=== PATIENT | male | born 1940 | race Caucasian/White ===

== ENCOUNTER 2017-08-05 23:45 | Inpatient (IN) | payer BC, MEDICARE ==
[~2017-08-05] VITALS: Ht 170.2 cm; Wt 80.1 kg
[~2017-08-05 23:45] MED LIST: HYDR-902 PO
[2017-08-06] MEDS ORDERED: KETOROLAC 15 MG INJ IV STA (00:03)
[2017-08-06] MEDS ORDERED: LACTATED RINGER'S 1,000 ML IV ONE (00:30)
[2017-08-06 00:40] LABS: BASOPHILS % 0.1 % (0.0-2.0); EOSINOPHILS # 0.1 10^3/ul (0.0-0.5); EOSINOPHILS % 0.4 % (0.0-7.0); HEMATOCRIT 42.1 % (42.0-52.0); HEMOGLOBIN 14.5 g/dl (14.0-18.0); LYMPHOCYTES % 21.9 % (15.0-51.0); MEAN CORPUSCULAR HGB CONC 34.4 g/dl (32.0-37.0); MEAN PLATELET VOLUME 8.9 fl (7.4-10.4); MONOCYTES % 7.4 % (0.0-11.0); NEUTROPHIL # 9.6 10^3/ul (1.6-7.5); NEUTROPHILS % 69.8 % (39.0-77.0); PLATELET COUNT 223 10^3/UL (140-415); RED BLOOD COUNT 4.84 10^6/ul (4.70-6.10); RED CELL DISTRIBUTION WIDTH 12.6 % (11.5-14.5); WHITE BLOOD COUNT 13.8 10^3/ul (4.8-10.8)
[2017-08-06 00:45] LABS: URINE BLOOD (Dip) POC Negative (NEGATIVE)
[2017-08-06 00:52] LABS: ALBUMIN 3.8 g/dl (3.3-4.9); ALBUMIN/GLOBULIN RATIO 1.26; BILIRUBIN,INDIRECT 0.4 mg/dl (0-1.1); BILIRUBIN,TOTAL 0.4 mg/dl (0.2-1.3); CALCIUM 9.3 mg/dl (8.4-10.2); CREATININE 1.2 mg/dl (0.61-1.24); POTASSIUM 3.8 mmol/L (3.5-5.1); TOTAL PROTEIN 6.8 g/dl (6.1-8.1)
[2017-08-06 01:31] LABS: ADD UMIC NO; UR ASCORBIC ACID 20 mg/dL (NEGATIVE); UR BILIRUBIN (Dip) NEGATIVE (NEGATIVE); UR BLOOD (Dip) NEGATIVE (NEGATIVE); UR CLARITY CLEAR (CLEAR); UR COLOR STRAW (YELLOW); UR GLUCOSE (Dip) NEGATIVE (NEGATIVE); UR KETONES (Dip) NEGATIVE (NEGATIVE); UR LEUKOCYTE ESTERASE (Dip) NEGATIVE Leu/ul (NEGATIVE); UR NITRITE (Dip) NEGATIVE (NEGATIVE); UR SPECIFIC GRAVITY (Dip) 1.006 (1.003-1.030); UR TOTAL PROTEIN (Dip) NEGATIVE (NEGATIVE); UR UROBILINOGEN (Dip) NEGATIVE (NEGATIVE)
--- NOTE | 2017-08-06 02:00 | ERD ---
ER Documentation Chief Complaint Chief Complaint lower AP since 1930, constipation (chronic) now urinary retention x1 hr HPI 77-year-old man complains of constipation and urinary retention beginning early this evening, he also describes diffuse abdominal pain and distention. He denies fevers or chills, no chest pain or shortness of breath, no vomiting or diarrhea. Patient has a history of appendectomy. ROS All systems reviewed and are negative except as per history of present illness. Medications Home Meds Active Scripts Hydrocodone/Acetaminophen ([place] 10-325 Tablet) 1 Each Tablet, 1 EACH PO Q6, # 20 TAB Prov:DAKOTAH LOPEZ DO 05/14/16 Allergies Allergies: Coded Allergies: Sulfa (Sulfonamide Antibiotics) (Verified Allergy, Unknown, 08/05/17) PMhx/Soc Diabetes mellitus, history of appendectomy History of Surgery: Yes (APPENDECTOMY) Anesthesia Reaction: No Hx Neurological Disorder: No Hx Respiratory Disorders: No Hx Cardiac Disorders: Yes (HIGH CHOLESTEROL) Hx Psychiatric Problems: No Hx Miscellaneous Medical Probl: Yes (DM, BPH) Hx Alcohol Use: No Hx Substance Use: No Hx Tobacco Use: No Smoking Status: Never smoker FmHx Family History: No diabetes Physical Exam Vitals Vital Signs Date Time Temp Pulse Resp B/P Pulse Ox O2 Delivery O2 Flow Rate FiO2 08/06/17 00:00 97.3 89 20 121/90 100 Room Air 08/05/17 23:55 97.3 94 20 121/90 100 Physical Exam GENERAL: Well-developed, well-nourished, appears dehydrated, afebrile HEENT: Dry mucous membranes, pink conjunctiva, no cervical spine tenderness or step-off deformities, no goiter, no jaundice or icterus, extraocular movements intact without pain. No submandibular induration, and no pharyngeal erythema NEURO: Alert and oriented 3, cranial nerves II through XII intact bilaterally, pupils equal round reactive to light, no focal deficits or facial asymmetry, sensation intact distally Strength 5/5 in upper and lower extremities bilaterally CARDIAC: Regular rate and rhythm, no murmurs rubs or gallops LUNGS: Clear bilaterally no wheezing crackles or stridor ABDOMEN: Protuberant abdomen, distended, no tenderness to touch, no rebound, no psoas sign SKIN: Warm and dry to touch, no abrasions, contusions, or hematomas, no lacerations, no ecchymosis, no target lesions, and without ulcers EXTREMITIES: No clubbing cyanosis or edema, calves are bilaterally symmetrical, no Homans sign, no popliteal cord sign. Distal pulses equal and bilateral PSYCH: Normal affect without agitation or irritability Result Diagram: 08/06/17 0014 08/06/17 0014 Results 24 hrs Laboratory Tests Test 08/06/17 00:14 08/06/17 00:35 08/06/17 00:44 White Blood Count 13.810^3/ul Red Blood Count 4.8410^6/ul Hemoglobin 14.5g/dl Hematocrit 42.1% Mean Corpuscular Volume 87.0fl Mean Corpuscular Hemoglobin 30.0pg Mean Corpuscular Hemoglobin Concent 34.4g/dl Red Cell Distribution Width 12.6% Platelet Count 75362^3/UL Mean Platelet Volume 8.9fl Neutrophils % 69.8% Lymphocytes % 21.9% Monocytes % 7.4% Eosinophils % 0.4% Basophils % 0.1% Nucleated Red Blood Cells % 0.0/100WBC Neutrophils # 9.610^3/ul Lymphocytes # 3.010^3/ul Monocytes # 1.010^3/ul Eosinophils # 0.110^3/ul Basophils # 0.010^3/ul Nucleated Red Blood Cells # 0.010^3/ul Sodium Level 132mmol/L Potassium Level 3.8mmol/L Chloride Level 94mmol/L Carbon Dioxide Level 26mmol/L Anion Gap 16 Blood Urea Nitrogen 17mg/dl Creatinine 1.20mg/dl Glucose Level 138mg/dl Calcium Level 9.3mg/dl Total Bilirubin 0.4mg/dl Direct Bilirubin 0.00mg/dl Indirect Bilirubin 0.4mg/dl Aspartate Amino Transf (AST/SGOT) 22IU/L Alanine Aminotransferase (ALT/SGPT) 36IU/L Alkaline Phosphatase 28IU/L Total Protein 6.8g/dl Albumin 3.8g/dl Globulin 3.00g/dl Albumin/Globulin Ratio 1.26 Lipase 68U/L Urine Color STRAW Urine Clarity CLEAR Urine pH 7.0 Urine Specific [place] 1.006 Urine Ketones NEGATIVEmg/dL Urine Nitrite NEGATIVEmg/dL Urine Bilirubin NEGATIVEmg/dL Urine Urobilinogen NEGATIVEmg/dL Urine Leukocyte Esterase NEGATIVELeu/ul Urine Hemoglobin NEGATIVEmg/dL Urine Glucose NEGATIVEmg/dL Urine Total Protein NEGATIVEmg/dl Bedside Urine pH (LAB) 7.0 Bedside Urine Protein (LAB) Negative Bedside Urine Glucose (UA) Negative Bedside Urine Ketones (LAB) Negative Bedside Urine Blood Negative Bedside Urine Nitrite (LAB) Negative Bedside Urine Leukocyte Esterase (L Negative Current Medications Medications (Trade) Dose Ordered Sig/Laci Route PRN Reason Start Time Stop Time Status Last Admin Dose Admin Ketorolac Tromethamine 15 mg 15 mg ONCE STAT IV 08/06/17 00:03 08/06/17 00:05 DC 08/06/17 00:23 Lactated Ringer's 1,000 ml @ 1,000 mls/hr Q1H ONCE IV 08/06/17 00:30 08/06/17 01:29 DC 08/06/17 00:24 Piperacillin Sod/ Tazobactam Sod (Zosyn 3.375gm/ 50 ml (Pmx)) 50 ml @ 100 mls/hr ONCE ONCE IV 08/06/17 02:30 08/06/17 02:59 DC 08/06/17 02:18 Hydromorphone HCl (Dilaudid) 1 mg ONCE STAT IV 08/06/17 02:16 08/06/17 02:17 DC 08/06/17 02:20 Procedures/MDM IV line was established patient was placed on case monitor rhythm strip revealed a sinus rhythm at about 80 bpm with upright P and T waves. Patient was afebrile. Guevara catheter was placed for urinary retention. I administered 1 L LR intravenously and Toradol 15 mg IV 1. For continued pain I administered hydromorphone 1 mg IV 1 CBC revealed a leukocytosis of 14, electrolytes were unremarkable, liver function tests were normal, urine analysis was negative for infection. CT scan of the abdomen and pelvis was performed, given the patient's symptoms. 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 Please refer to radiologist dictation for full report. I administered Pipracil and tazobactam 3.375 g IV 1. Patient [facility] be [facility] for continued medical management and surgical consultation. Surgeon on-call Dr. Phillips has been paged as 03:09 Departure Diagnosis: Primary Impression: Abdominal pain Abdominal location: generalized Qualified Code: R10.84 - Generalized abdominal pain Additional Impressions: Constipation Constipation type: unspecified constipation type Qualified Code: K59.00 - Constipation, unspecified constipation type Urinary retention Mesenteric panniculitis Condition: KELY Ceja MD Aug 06, 2017 02:00
--- NOTE | 2017-08-06 02:07 | RADRPT ---
PROCEDURE: CT Abdomen and Pelvis without contrast. CLINICAL INDICATION: Right lower quadrant pain, history of appendectomy TECHNIQUE: CT scan of the abdomen and pelvis without contrast was performed on a multidetector hig h-resolution CT scanner. The patient was scanned without intravenous contrast. Coronal and sagittal reformatted images were obtained from the axial source images. Images were reviewed on a high-resol [employer] PACS workstation. The total exam CTDI equals 14.44 mGy and the total exam DLP equals 943.94 mG y-cm. One or more the following dose reduction techniques were utilized: Automated exposure control, adjus tment of the mA and / or kV according to patient's size, or use of iterative reconstruction techniqu e. DICOM images are available. COMPARISON: None. FINDINGS: Minimal linear atelectasis/fibrosis at lung bases. No pneumoperitoneum is seen. Very small umbilical hernia containing fat only. No abnormality seen in the liver. The gallbladder is contracted. This i s nonspecific and could be due to nonfasting state. Food material/debris and air is seen in the stom ach. No abnormality seen in the spleen. No biliary dilatation is seen. Atrophic changes are seen in the pancreas which can be seen in elderly patients. No abnormality of the adrenals is seen. Calcific ation in thoracoabdominal aorta. No abdominal aortic aneurysm is seen. There is nonspecific minimal hydronephrosis bilaterally. No renal or ureteral stone is seen. Mild nonspecific perinephric soft ti ssue stranding seen bilaterally. Guevara catheter in bladder. The prostate does not appear to be signi ficantly enlarged. Small bilateral hydroceles are apparent. Moderate stool is seen in the rectum and in much of the colon. Surgical clips in right pelvis likely secondary to previous appendectomy. No dilated small bowel loops are seen. There is nonspecific "hazy" increased density in the central mes entery which could be secondary to mesenteric panniculitis. No enlarged lymph nodes are seen in the abdomen or pelvis. Trace ascites in left mid pelvis. Mild osteoarthrosis at hips. Degenerative rodriguez es at sacroiliac joints. Degenerative changes in thoracolumbar spine. Central spinal stenosis in lum bar spine. IMPRESSION: There is nonspecific "hazy" increased density in the central mesentery which could be secondary to m esenteric panniculitis. Trace ascites in left mid pelvis. Nonspecific minimal hydronephrosis bilater ally. Moderate stool in the rectum and much of colon. Please see above. RPTAT: HJES .Mandeep Rebollar MD, MD Date Time Electronically viewed and signed by .Mandeep Rebollar MD, MD on 08/06/2017 02:06 .S/
[2017-08-06] MEDS ORDERED: HYDROmorphONE 1 MG/ML SYG IV STA (02:16)
[2017-08-06] MEDS ORDERED: PIPER-TAZO 3.375 GM IV (PMX) 50 ML IV ONE (02:30)
[2017-08-06 03:39] VITALS: PULSE 84; TEMP 98.2
[2017-08-06 03:57] VITALS: Ht 170.2 cm; Wt 80.1 kg
[2017-08-06] MEDS ORDERED: SIMV40TA3 PO (04:12)
[2017-08-06] MEDS ORDERED: SITA1TAB5 PO (04:12)
[2017-08-06] MEDS ORDERED: FINA5TAB4 PO (04:12)
[2017-08-06] MEDS ORDERED: LISI10TA2 PO (04:12)
[2017-08-06] MEDS ORDERED: VANCOMYCIN IV PER PHARMACY XX SCH (04:30)
[2017-08-06] MEDS ORDERED: morphine 4 MG/ML VIAL IV PRN (04:30)
[2017-08-06] MEDS ORDERED: ONDANSETRON 4 MG INJ IV PRN (04:30)
[2017-08-06] MEDS: DEXTROSE 5%-0.45% NACL 1,000 ML IV SCH ×3 (04:40→19:44)
[2017-08-06] MEDS ORDERED: GLUCAGON 1 MG INJ IM PRN (05:00)
[2017-08-06] MEDS ORDERED: DEXTROSE 50% 50 ML SYRINGE IV PRN ×2 (05:00)
[2017-08-06] MEDS: INSULIN ASPART [NOVOLOG] 3 ML PEN SC SCH ×5 (05:00→21:00)
[2017-08-06] MEDS ORDERED: GLUCOSE GEL 15 GRAM TUBE BUCCAL PRN (05:00)
[2017-08-06] MEDS ORDERED: GLUCOSE GEL 15 GRAM TUBE PO PRN ×2 (05:00)
[2017-08-06] MEDS ORDERED: VANCOMYCIN 1.5 GM in SOD CHLORIDE 0.9% 250 ML IVPB SCH (06:00)
[2017-08-06 07:53] VITALS: BP 124/73; RESP 18
--- NOTE | 2017-08-06 08:44 | HP ---
Date/Time of Note Date/Time of Note DATE: 08/06/17 TIME: 07:58 Assessment/Plan VTE Prophylaxis VTE Prophylaxis Intervention: SCD's Lines/Catheters Urinary Cath still in place: Yes Assessment/Plan Assessment/Plan ASSESSMENT 77-year-old male with a history of hypertension, type 2 diabetes, dyslipidemia, BPH and chronic constipation presents with abdominal pain/distention, difficulty with bowel movements and urination was CT abdomen/pelvis showing nonspecific "hazy" increased density in the central mesentery which could be secondary to mesenteric panniculitis. Trace ascites in left mid pelvis. Nonspecific minimal hydronephrosis bilaterally. Moderate stool in the rectum and much of colon. PLAN - Difficulty with bowel movements and abdominal distention/pain could be from is impacted stool. This with BPH, also explain the difficulty with urination. I will start him on a bowel regimen, continue Guevara catheter for now. IV antibiotic for possible mesenteric panniculitis. He will be placed on Flomax. At the later time, we will remove the Guevara and see if he will be able to urinate on his own and if not will place a urology consult. ID consult. Will consider a GI consult based on the clinical course (patient never had a colonoscopy). A surgical consult will be considered as well. - Insulin while in-house for his diabetes - Continue antihypertensives adjustment as needed HPI/ROS Admit Date/Time Admit Date/Time Aug 06, 2017 at 02:35 Hx of Present Illness This is a 77-year-old male with a history of hypertension, type 2 diabetes, dyslipidemia, BPH and chronic constipation who presented to the ER complaining of abdominal pain, abdominal distention, difficulty urination. He said earlier today, he had something to eat at [employer] and shortly after he got home, he said he had urges to defecate. However, he was unable to have bowel movement and also he said he could not urinate as well. He took a stool softener a few hours prior. He then started noticing diffuse abdominal pain and distention. Denied nausea or vomiting, chest pain, shortness of breath, fever, chills. When he presented to the ER, CT abdomen/pelvis showed there is nonspecific "hazy " increased density in the central mesentery which could be secondary to mesenteric panniculitis. Trace ascites in left mid pelvis. Nonspecific minimal hydronephrosis bilaterally. Moderate stool in the rectum and much of colon. Labs shows a WBC of almost 14,000 and sodium 132, otherwise CBC and a CMP are within acceptable range. PMH/Family/Social Social History Smoking Status: Never smoker Exam/Review of Systems Vital Signs Vitals Vital Signs Date Time Temp Pulse Resp B/P Pulse Ox O2 Delivery O2 Flow Rate FiO2 08/06/17 07:53 97.6 78 18 124/73 98 08/06/17 03:39 Room Air Intake and Output 08/05/17 08/05/17 08/06/17 15:00 23:00 07:00 Intake Total 10 ml Output Total 1800 ml Balance -1790 ml Exam Constitutional: alert, oriented, well developed Head: atraumatic, normocephalic Eyes: PERRL Respiratory: clear to auscultation, normal air movement Cardiovascular: nl pulses, regular rate and rhythm Gastrointestinal: non-tender, soft Extremities: normal pulses Labs Result Diagram: 08/06/17 0014 08/06/17 0014 Medications Medications Current Medications Piperacillin Sod/ Tazobactam Sod (Zosyn 3.375gm/ 50 ml (Pmx)) 50 ml @ 100 mls/ hr Q6 IVPB ; Start 08/06/17 at 06:00 Ondansetron HCl 4 mg 4 mg Q6H PRN IV NAUSEA AND/OR VOMITING; Start 08/06/17 at 04:30 Dextrose/Sodium Chloride (D5-1/2ns) 1,000 ml @ 100 mls/hr Q10H IV Last administered on 08/06/17t 04:40; Admin Dose 100 MLS/HR; Start 08/06/17 at 04: 30 Insulin Aspart (Novolog Insulin Pen) NOVOLOG *MILD* ALGORI... Q4 SC ; Start at 05:00 Miscellaneous Information 1 ea NOTE XX ; Start 08/06/17 at 05:00 Glucose (Glutose) 15 gm Q15M PRN PO DECREASED GLUCOSE; Start 08/06/17 at 05:00 Glucose (Glutose) 22.5 gm Q15M PRN PO DECREASED GLUCOSE; Start 08/06/17 at 05: 00 Dextrose (D50w Syringe) 25 ml Q15M PRN IV DECREASED GLUCOSE; Start 08/06/17 at 05:00 Dextrose (D50w Syringe) 50 ml Q15M PRN IV DECREASED GLUCOSE; Start 08/06/17 at 05:00 Glucagon (Glucagen) 1 mg Q15M PRN IM DECREASED GLUCOSE; Start 08/06/17 at 05: 00 Glucose 15 gm 15 gm Q15M PRN BUCCAL DECREASED GLUCOSE; Start 08/06/17 at 05:00 Vancomycin HCl 1.5 gm/Sodium Chloride 250 ml @ 83.333 mls/ hr ONCE IVPB Last administered on 08/06/17t 05:22; Admin Dose 83.333 MLS/HR; Start 08/06/17 at 06:00; Stop 08/06/17 at 08:59 Vancomycin HCl (Vancocin) 250 ml @ 125 mls/hr Q12H IVPB ; Start 08/06/17 at 18 :30 CINTHYA LOPEZ MD Aug 06, 2017 08:09
--- NOTE | 2017-08-06 09:48 | CONS ---
Date/Time of Note Date/Time of Note DATE: 08/06/17 TIME: 09:45 Assessment/Plan Assessment/Plan Additional Assessment/Plan Abdominal examination is benign Plan: Start clear liquids and advance as tolerated Further recommendations will be forthcoming based on the patient's further workup and clinical course Consultation Date/Type/Reason Admit Date/Time Aug 06, 2017 at 02:35 Date of Consultation: Aug 06, 2017 Reason for Consultation Abdominal pain and distention Hx of Present Illness The patient is a 77-year-old diabetic male who has a history of prostatism presents with severe abdominal distention and pain. CT scan showed possible mesenteric panniculitis. Since admission the patient's symptoms have defervesced. Constitutional: no complaints Eyes: no complaints ENT: no complaints Respiratory: no complaints Cardiovascular: no complaints Gastrointestinal: constipation, pain Genitourinary: no complaints Musculoskeletal: no complaints Skin: no complaints Neurologic: no complaints Endocrine: no complaints Lymphatic: no complaints Psychological: no complaints Immunologic: no complaints Past Medical History Medical History: diabetes, other (Prostatism) Past Surgical History Past Surgical Hx: appendectomy Family History Significant Family History: no pertinent family hx Social History Smoking Status: Never smoker Exam/Review of Systems Vital Signs Vitals Vital Signs Date Time Temp Pulse Resp B/P Pulse Ox O2 Delivery O2 Flow Rate FiO2 08/06/17 07:53 97.6 78 18 124/73 98 08/06/17 03:39 Room Air Intake and Output 08/05/17 08/05/17 08/06/17 15:00 23:00 07:00 Intake Total 10 ml Output Total 1800 ml Balance -1790 ml Exam Constitutional: alert, oriented Psych: no complaints Head: normocephalic Eyes: nl conjunctiva ENMT: nl external ears & nose Neck: supple Respiratory: clear to auscultation Cardiovascular: regular rate and rhythm Gastrointestinal: soft Genitourinary - Male: nl penis Musculoskeletal: nl extremities to inspection Extremities: normal pulses Neurological: SWEATBAND SHAPER II-XII intact Skin: nl turgor Lymph: nl lymph nodes Results Result Diagram: 08/06/17 0014 08/06/17 0014 Results 24 hrs Laboratory Tests Test 08/06/17 00:14 08/06/17 00:35 08/06/17 00:44 08/06/17 04:06 White Blood Count 13.8 H Red Blood Count 4.84 Hemoglobin 14.5 Hematocrit 42.1 Mean Corpuscular Volume 87.0 Mean Corpuscular Hemoglobin 30.0 Mean Corpuscular Hemoglobin Concent 34.4 Red Cell Distribution Width 12.6 Platelet Count 223 Mean Platelet Volume 8.9 Neutrophils % 69.8 Lymphocytes % 21.9 Monocytes % 7.4 Eosinophils % 0.4 Basophils % 0.1 Nucleated Red Blood Cells % 0.0 Neutrophils # 9.6 H Lymphocytes # 3.0 H Monocytes # 1.0 H Eosinophils # 0.1 Basophils # 0.0 Nucleated Red Blood Cells # 0.0 Sodium Level 132 L Potassium Level 3.8 Chloride Level 94 L Carbon Dioxide Level 26 Anion Gap 16 Blood Urea Nitrogen 17 Creatinine 1.20 Glucose Level 138 Calcium Level 9.3 Total Bilirubin 0.4 Direct Bilirubin 0.00 Indirect Bilirubin 0.4 Aspartate Amino Transf (AST/SGOT) 22 Alanine Aminotransferase (ALT/SGPT) 36 Alkaline Phosphatase 28 L Total Protein 6.8 Albumin 3.8 Globulin 3.00 Albumin/Globulin Ratio 1.26 Lipase 68 Urine Color STRAW Urine Clarity CLEAR Urine pH 7.0 Urine Specific [place] 1.006 Urine Ketones NEGATIVE Urine Nitrite NEGATIVE Urine Bilirubin NEGATIVE Urine Urobilinogen NEGATIVE Urine Leukocyte Esterase NEGATIVE Urine Hemoglobin NEGATIVE Urine Glucose NEGATIVE Urine Total Protein NEGATIVE Bedside Urine pH (LAB) 7.0 Bedside Urine Protein (LAB) Negative Bedside Urine Glucose (UA) Negative Bedside Urine Ketones (LAB) Negative Bedside Urine Blood Negative Bedside Urine Nitrite (LAB) Negative Bedside Urine Leukocyte Esterase (L Negative Bedside Glucose 137 Test 08/06/17 08:44 Bedside Glucose 152 Medications Medications Current Medications Piperacillin Sod/ Tazobactam Sod (Zosyn 3.375gm/ 50 ml (Pmx)) 50 ml @ 100 mls/ hr Q6 IVPB ; Start 08/06/17 at 06:00 Ondansetron HCl 4 mg 4 mg Q6H PRN IV NAUSEA AND/OR VOMITING; Start 08/06/17 at 04:30 Dextrose/Sodium Chloride (D5-1/2ns) 1,000 ml @ 100 mls/hr Q10H IV Last administered on 08/06/17t 04:40; Admin Dose 100 MLS/HR; Start 08/06/17 at 04: 30 Insulin Aspart (Novolog Insulin Pen) NOVOLOG *MILD* ALGORI... Q4 SC ; Start at 05:00 Miscellaneous Information 1 ea NOTE XX ; Start 08/06/17 at 05:00 Glucose (Glutose) 15 gm Q15M PRN PO DECREASED GLUCOSE; Start 08/06/17 at 05:00 Glucose (Glutose) 22.5 gm Q15M PRN PO DECREASED GLUCOSE; Start 08/06/17 at 05: 00 Dextrose (D50w Syringe) 25 ml Q15M PRN IV DECREASED GLUCOSE; Start 08/06/17 at 05:00 Dextrose (D50w Syringe) 50 ml Q15M PRN IV DECREASED GLUCOSE; Start 08/06/17 at 05:00 Glucagon (Glucagen) 1 mg Q15M PRN IM DECREASED GLUCOSE; Start 08/06/17 at 05: 00 Glucose 15 gm 15 gm Q15M PRN BUCCAL DECREASED GLUCOSE; Start 08/06/17 at 05:00 Vancomycin HCl (Vancocin) 250 ml @ 125 mls/hr Q12H IVPB ; Start 08/06/17 at 18 :30 Lactulose (Enulose) 20 gm Q6H PO ; Start 08/06/17 at 08:00 JAZZMINE DIAZ MD Aug 06, 2017 09:48
[2017-08-06] MEDS: PIPER-TAZO 3.375 GM IV (PMX) 50 ML IVPB SCH ×2 (10:21→13:50)
[2017-08-06] MEDS: LACTULOSE 30ML CUP PO SCH ×3 (10:21→19:33)
--- NOTE | 2017-08-06 16:54 | PN ---
Date/Time of Note Date/Time of Note DATE: 08/06/17 TIME: 16:51 Assessment/Plan VTE Prophylaxis VTE Prophylaxis Intervention: LMWH Lines/Catheters IV Catheter Type (from Nrs): Peripheral IV Urinary Cath still in place: Yes Reason Cath still needed: urinary retention Assessment/Plan Chief Complaint/Hosp Course S- chr constipation? s/p bm this afternoon. feels better. no h/o colonoscopy. O: vss PE no pallor/adenopathy s1s2 reg; no m/r/g ctab bs+ nt nd no r/r/g no edema A/P 1) Mesenteric Panniculitis; stable/ observe 2) Constipation; outpt colonoscopy 3) Dm/ Metabolic syndrome 4) BPH? Problems: Exam/Review of Systems Vital Signs Vitals Vital Signs Date Time Temp Pulse Resp B/P Pulse Ox O2 Delivery O2 Flow Rate FiO2 08/06/17 07:53 97.6 78 18 124/73 98 08/06/17 03:39 Room Air Intake and Output 08/05/17 08/05/17 08/06/17 15:00 23:00 07:00 Intake Total 10 ml Output Total 1800 ml Balance -1790 ml Results Result Diagram: 08/06/17 0014 08/06/17 0014 Results 24 hrs Laboratory Tests Test 08/06/17 00:14 08/06/17 00:35 08/06/17 00:44 08/06/17 04:06 White Blood Count 13.8 H Red Blood Count 4.84 Hemoglobin 14.5 Hematocrit 42.1 Mean Corpuscular Volume 87.0 Mean Corpuscular Hemoglobin 30.0 Mean Corpuscular Hemoglobin Concent 34.4 Red Cell Distribution Width 12.6 Platelet Count 223 Mean Platelet Volume 8.9 Neutrophils % 69.8 Lymphocytes % 21.9 Monocytes % 7.4 Eosinophils % 0.4 Basophils % 0.1 Nucleated Red Blood Cells % 0.0 Neutrophils # 9.6 H Lymphocytes # 3.0 H Monocytes # 1.0 H Eosinophils # 0.1 Basophils # 0.0 Nucleated Red Blood Cells # 0.0 Sodium Level 132 L Potassium Level 3.8 Chloride Level 94 L Carbon Dioxide Level 26 Anion Gap 16 Blood Urea Nitrogen 17 Creatinine 1.20 Glucose Level 138 Calcium Level 9.3 Total Bilirubin 0.4 Direct Bilirubin 0.00 Indirect Bilirubin 0.4 Aspartate Amino Transf (AST/SGOT) 22 Alanine Aminotransferase (ALT/SGPT) 36 Alkaline Phosphatase 28 L Total Protein 6.8 Albumin 3.8 Globulin 3.00 Albumin/Globulin Ratio 1.26 Lipase 68 Urine Color STRAW Urine Clarity CLEAR Urine pH 7.0 Urine Specific [place] 1.006 Urine Ketones NEGATIVE Urine Nitrite NEGATIVE Urine Bilirubin NEGATIVE Urine Urobilinogen NEGATIVE Urine Leukocyte Esterase NEGATIVE Urine Hemoglobin NEGATIVE Urine Glucose NEGATIVE Urine Total Protein NEGATIVE Bedside Urine pH (LAB) 7.0 Bedside Urine Protein (LAB) Negative Bedside Urine Glucose (UA) Negative Bedside Urine Ketones (LAB) Negative Bedside Urine Blood Negative Bedside Urine Nitrite (LAB) Negative Bedside Urine Leukocyte Esterase (L Negative Bedside Glucose 137 Test 08/06/17 08:44 08/06/17 12:58 Bedside Glucose 152 147 Medications Medications Current Medications Piperacillin Sod/ Tazobactam Sod (Zosyn 3.375gm/ 50 ml (Pmx)) 50 ml @ 100 mls/ hr Q6 IVPB Last administered on 08/06/17 13:50; Admin Dose 100 MLS/HR; Start 08/06/17 at 06:00 Ondansetron HCl 4 mg 4 mg Q6H PRN IV NAUSEA AND/OR VOMITING; Start 08/06/17 at 04:30 Dextrose/Sodium Chloride (D5-1/2ns) 1,000 ml @ 100 mls/hr Q10H IV Last administered on 08/06/17 04:40; Admin Dose 100 MLS/HR; Start 08/06/17 at 04: 30 Insulin Aspart (Novolog Insulin Pen) NOVOLOG *MILD* ALGORI... Q4 SC Last administered on 08/06/17 13:49; Admin Dose 1 UNIT; Start 08/06/17 at 05:00 Miscellaneous Information 1 ea NOTE XX ; Start 08/06/17 at 05:00 Glucose (Glutose) 15 gm Q15M PRN PO DECREASED GLUCOSE; Start 08/06/17 at 05:00 Glucose (Glutose) 22.5 gm Q15M PRN PO DECREASED GLUCOSE; Start 08/06/17 at 05: 00 Dextrose (D50w Syringe) 25 ml Q15M PRN IV DECREASED GLUCOSE; Start 08/06/17 at 05:00 Dextrose (D50w Syringe) 50 ml Q15M PRN IV DECREASED GLUCOSE; Start 08/06/17 at 05:00 Glucagon (Glucagen) 1 mg Q15M PRN IM DECREASED GLUCOSE; Start 08/06/17 at 05: 00 Glucose 15 gm 15 gm Q15M PRN BUCCAL DECREASED GLUCOSE; Start 08/06/17 at 05:00 Vancomycin HCl (Vancocin) 250 ml @ 125 mls/hr Q12H IVPB ; Start 08/06/17 at 18 :30 Lactulose (Enulose) 20 gm Q6H PO Last administered on 08/06/17t 10:21; Admin Dose 20 GM; Start 08/06/17 at 08:00 Famotidine (Pepcid Iv) 20 mg DAILY IV ; Start 08/07/17 at 09:00 Enoxaparin Sodium (Lovenox) 40 mg DAILY SC ; Start 08/07/17 at 09:00 JIMBO STEPHENS MD Aug 06, 2017 16:54
[2017-08-06] MEDS ORDERED: KETOROLAC 15 MG INJ IV PRN (17:00)
[2017-08-06] MEDS ORDERED: VANCOMYCIN 1 GM in NS 250 ML IVPB SCH (18:30)
[2017-08-06 19:36] VITALS: BP 113/60; RESP 16
[2017-08-06] MEDS: ATORVASTATIN 20 MG TAB PO SCH (21:05)
[2017-08-06] MEDS: FINASTERIDE 5 MG TAB PO SCH (21:06)
--- NOTE | 2017-08-06 21:40 | RADRPT ---
PROCEDURE: XR Chest. CLINICAL INDICATION: Cough. TECHNIQUE: Single frontal view. COMPARISON: None. FINDINGS: The lungs are clear. The heart size is normal. There is no pleural effusion. There is no pneumothorax. IMPRESSION: 1. Normal chest radiograph. RPTAT: QQ .Desmond Gonzales MD, Date Time Electronically viewed and signed by .Desmond Gonzales MD, on 08/06/2017 21:40 .R/
[2017-08-07] MEDS: ACCU-CHEK XX SCH (01:09)
[2017-08-07 02:12] VITALS: BP 112/68; RESP 16
--- NOTE | 2017-08-07 05:15 | RADRPT ---
PROCEDURE: MR Abdomen. CLINICAL INDICATION: Abdominal pain TECHNIQUE: Multiplanar multi sequence imaging of the abdomen without contrast. MRCP sequences were also performed including 3-D maximal intensity projection reconstructed images. COMPARISON: CT from 08/06/2017 FINDINGS: MRI Abdomen: No pleural effusion is seen. No definite focal lesions of the liver, spleen, adrenals, kidneys, or p ancreas. No definite gallstones or gallbladder wall thickening. No biliary or pancreatic ductal dila tation. There is no evidence for pancreas divisum. No ascites is seen. Bowel in the upper abdomen is unremarkable. Slight haziness of the mesentery with small nodes is again seen, nonspecific. Degener ative change of the spine. Moderate stool in the right colon.. IMPRESSION: No evidence for choledocholithiasis. No definite acute abnormality. Slight haziness of the mesenteri c fat with small nodes again seen, nonspecific but can be seen in mesenteritis from a variety of ton ologies and can also be incidental.. RPTAT: [facility] Physician Paulina Date Time Electronically viewed and signed by Physician Paulina on 08/07/2017 05:15 LE/
[2017-08-07 05:34] LABS: BASOPHILS % 0.3 % (0.0-2.0); EOSINOPHILS # 0.1 10^3/ul (0.0-0.5); EOSINOPHILS % 0.6 % (0.0-7.0); HEMATOCRIT 39.8 % (42.0-52.0); HEMOGLOBIN 13.7 g/dl (14.0-18.0); LYMPHOCYTES # 2.6 10^3/ul (0.8-2.9); LYMPHOCYTES % 33.1 % (15.0-51.0); MEAN CORPUSCULAR HEMOGLOBIN 30.1 pg (29.0-33.0); MEAN CORPUSCULAR HGB CONC 34.4 g/dl (32.0-37.0); MEAN CORPUSCULAR VOLUME 87.5 fl (82.0-101.0); MONOCYTE # 0.8 10^3/ul (0.3-0.9); MONOCYTES % 10.3 % (0.0-11.0); NEUTROPHIL # 4.4 10^3/ul (1.6-7.5); NEUTROPHILS % 55.3 % (39.0-77.0); PLATELET COUNT 184 10^3/UL (140-415); RED BLOOD COUNT 4.55 10^6/ul (4.70-6.10); WHITE BLOOD COUNT 7.9 10^3/ul (4.8-10.8)
[2017-08-07] MEDS: DEXTROSE 5%-0.45% NACL 1,000 ML IV SCH (05:46)
[2017-08-07 05:52] LABS: INR 1.05; PROTIME 13.7 Sec (12.2-14.2); PT RATIO 1.1
[2017-08-07 06:02] LABS: ALBUMIN 3.3 g/dl (3.3-4.9); ALBUMIN/GLOBULIN RATIO 1.1; BILIRUBIN,INDIRECT 0.6 mg/dl (0-1.1); BILIRUBIN,TOTAL 0.6 mg/dl (0.2-1.3); CALCIUM 8.8 mg/dl (8.4-10.2); CREATININE 1.1 mg/dl (0.61-1.24); MAGNESIUM 2.1 mg/dl (1.7-2.5); PHOSPHORUS 3.2 mg/dl (2.5-4.9); POTASSIUM 3.9 mmol/L (3.5-5.1); TOTAL PROTEIN 6.3 g/dl (6.1-8.1)
[2017-08-07 06:04] LABS: CREATININE 1.13 mg/dl (0.61-1.24)
[2017-08-07 06:32] LABS: THYROID STIMULATING HORMONE 2.32 MIU/L (0.465-4.680)
[2017-08-07 08:06] VITALS: BP 107/65; RESP 19
[2017-08-07] MEDS: FAMOTIDINE 20 MG INJ IV SCH (08:36)
[2017-08-07] MEDS: LISINOPRIL 10 MG TAB PO SCH (08:36)
[2017-08-07] MEDS: INSULIN ASPART [NOVOLOG] 3 ML PEN SC SCH ×4 (08:37→21:00)
[2017-08-07] MEDS ORDERED: ENOXAPARIN 40 MG/0.4 ML SYG SC SCH (09:00)
--- NOTE | 2017-08-07 09:02 | PN ---
Date/Time of Note Date/Time of Note DATE: 08/07/17 TIME: 09:02 Assessment/Plan VTE Prophylaxis VTE Prophylaxis Intervention: ambulation, SCD's Lines/Catheters IV C[facility]ter Type (from [facility]): Peripheral IV Urinary Cath still in place: No Assessment/Plan Chief Complaint/Hosp Course 77-year-old diabetic male with history of Crohn's disease, prostatism, presented with urinary urgency, abdominal distention and pain. CT scan showed possible mesenteric panniculitis. 1. Mesenteric panniculitis. Clinically resolving. -Surgery evaluation appreciated. No further recommendations indicated at this time. Patient is tolerating diet. 2. Urinary retention/bilateral mild hydronephrosis. -Urology consult. Continue Guevara and will follow up with urology recommendations. 3. Hyperglycemia with adult onset diabetes. A1c 6.4. -Continue insulin in-house. Will also add Lantus. 4. Constipation. Resolved. -Continue stool softeners and PRN laxatives. Recommend outpatient colonoscopy. 5. Hypertension. Stable. -Continue antihypertensives. 6. Hypercholesterolemia. -Continue statin. Prophylaxis: SCD/ambulation. Follow-up with urology recommendations. Estimate discharge planning in next 24- 48 hours once patient is able to void without any difficulties. Patient is seen in collaboration with Dr. Mills. Problems: Subjective 24 Hr Interval Summary Free Text/Dictation Doing well. Currently he denies any abdominal pain or other discomfort. Patient had bowel movement last night. Exam/Review of Systems Vital Signs Vitals Vital Signs Date Time Temp Pulse Resp B/P Pulse Ox O2 Delivery O2 Flow Rate FiO2 08/07/17 08:06 98.7 62 19 107/65 96 08/06/17 03:39 Room Air Intake and Output 08/06/17 08/06/17 08/07/17 15:00 23:00 07:00 Intake Total 350 ml 2930 ml 2200 ml Output Total 4850 ml 3250 ml Balance 350 ml -1920 ml -1050 ml Exam General: Well developed,adequately built, not in any acute distress . HEENT: Normocephalic, Atraumatic, No laceration or hematoma; Eyes: PEERL, Conjunctiva clear, Anicteric sclera Neck: Supple without any lymphadenopathy, nontender, no JVD, no carotid bruits, trachea midline, no thyromegaly Cardiac: S1, S2 auscultated, regular rhythm and rate, no mumurs or gallop Pulmonary: Normal respiratory effort. Chest clear to auscultation bilaterally, no adventitious breath sounds GI: Abdomen normal to inspection. Soft, non tender, non- distended, no masses, no rebound tenderness or guarding. Bowel sounds active on all four quadrants Genitourinary: With Guevara draining clear yellow urine. Extremities: No cyanosis, clubbing, or edema. Pulses [2+] bilaterally. Full ROM on all four extremities. No focal weakness appreciated. Neurologic: Alert to person, place, time, and situation. Affect appropriate, intact sensation. Skin: Clean,dry, and intact. No ecchymosis, no rashes, or lesions Results Result Diagram: 08/07/17 0504 08/07/17 0504 Results 24 hrs Laboratory Tests Test 08/06/17 12:58 08/06/17 18:03 08/06/17 21:04 08/07/17 05:03 Bedside Glucose 147 186 141 Prothrombin Time 13.7 Prothrombin Time Ratio 1.1 INR International Normalized Ratio 1.05 Test 08/07/17 05:04 08/07/17 06:44 08/07/17 08:31 White Blood Count 7.9 # Red Blood Count 4.55 L Hemoglobin 13.7 L Hematocrit 39.8 L Mean Corpuscular Volume 87.5 Mean Corpuscular Hemoglobin 30.1 Mean Corpuscular Hemoglobin Concent 34.4 Red Cell Distribution Width 13.0 Platelet Count 184 Mean Platelet Volume 9.0 Neutrophils % 55.3 Lymphocytes % 33.1 Monocytes % 10.3 Eosinophils % 0.6 Basophils % 0.3 Nucleated Red Blood Cells % 0.0 Neutrophils # 4.4 Lymphocytes # 2.6 Monocytes # 0.8 Eosinophils # 0.1 Basophils # 0.0 Nucleated Red Blood Cells # 0.0 Sodium Level 140 Potassium Level 3.9 Chloride Level 105 # Carbon Dioxide Level 26 Anion Gap 13 Blood Urea Nitrogen 12 Creatinine 1.10 Glucose Level 193 Hemoglobin A1c 6.4 H Calcium Level 8.8 Phosphorus Level 3.2 Magnesium Level 2.1 Total Bilirubin 0.6 Direct Bilirubin 0.00 Indirect Bilirubin 0.6 Aspartate Amino Transf (AST/SGOT) 19 Alanine Aminotransferase (ALT/SGPT) 28 Alkaline Phosphatase 20 L Total Protein 6.3 Albumin 3.3 Globulin 3.00 Albumin/Globulin Ratio 1.10 Lipase 59 Thyroid Stimulating Hormone (TSH) 2.320 Lactic Acid Level 1.6 Bedside Glucose 170 Medications Medications Current Medications Ondansetron HCl 4 mg 4 mg Q6H PRN IV NAUSEA AND/OR VOMITING; Start 08/06/17 at 04:30 Dextrose/Sodium Chloride (D5-1/2ns) 1,000 ml @ 100 mls/hr Q10H IV Last administered on 08/07/17 05:46; Admin Dose 100 MLS/HR; Start 08/06/17 at 04: 30 Miscellaneous Information 1 ea NOTE XX ; Start 08/06/17 at 05:00 Glucose (Glutose) 15 gm Q15M PRN PO DECREASED GLUCOSE; Start 08/06/17 at 05:00 Glucose (Glutose) 22.5 gm Q15M PRN PO DECREASED GLUCOSE; Start 08/06/17 at 05: 00 Dextrose (D50w Syringe) 25 ml Q15M PRN IV DECREASED GLUCOSE; Start 08/06/17 at 05:00 Dextrose (D50w Syringe) 50 ml Q15M PRN IV DECREASED GLUCOSE; Start 08/06/17 at 05:00 Glucagon (Glucagen) 1 mg Q15M PRN IM DECREASED GLUCOSE; Start 08/06/17 at 05: 00 Glucose (Glutose) 15 gm Q15M PRN BUCCAL DECREASED GLUCOSE; Start 08/06/17 at 05:00 Famotidine (Pepcid Iv) 20 mg DAILY IV Last administered on 08/07/17 08:36; Admin Dose 20 MG; Start 08/07/17 at 09:00 Enoxaparin Sodium (Lovenox) 40 mg DAILY SC Last administered on 08/07/17 08: 34; Admin Dose 40 MG; Start 08/07/17 at 09:00 Ketorolac Tromethamine (Toradol) 15 mg Q6H PRN IV PAIN; Start 08/06/17 at 17: 00; Stop 08/09/17 at 16:59 Diagnostic Test (Pha) (Accu-Chek) 1 ea 02 XX ; Start 08/07/17 at 02:00 Polyethylene Glycol (Miralax) 17 gm BID PO ; Start 08/08/17 at 09:00 Finasteride (Proscar) 5 mg QHS PO Last administered on 08/06/17 21:06; Admin Dose 5 MG; Start 08/06/17 at 21:00 Lisinopril (Zestril) 10 mg DAILY PO Last administered on 08/07/17 08:36; Admin Dose 10 MG; Start 08/07/17 at 09:00 Atorvastatin Calcium (Lipitor) 20 mg DAILY@21 PO Last administered on 21:05; Admin Dose 20 MG; Start 08/06/17 at 21:00 Aspirin (Halfprin) 81 mg DAILY PO ; Start 08/08/17 at 09:00 MELANIE LEWIS V. CUSTOMER RELATIONS ADVISOR Aug 07, 2017 09:02
--- NOTE | 2017-08-07 11:28 | PN ---
Date/Time of Note Date/Time of Note DATE: 08/07/17 TIME: 11:27 Assessment/Plan Lines/Catheters IV Catheter Type (from [facility]): Peripheral IV Guevara in Place (from [facility]): Yes Assessment/Plan Chief Complaint/Hosp Course The patient is a 77-year-old diabetic male who has a history of prostatism presents with severe abdominal distention and pain. CT scan showed possible mesenteric panniculitis. Since admission the patient's symptoms have defervesced. Problems: Assessment/Plan Abdominal examination is benign Tolerating regular diet Can discharge. Will sign off, as there are no surgical recommendations. Subjective 24 Hr Interval Summary Patient is completely asymptomatic, and all of the symptoms have resolved Exam/Review of Systems Vital Signs Vitals Vital Signs Date Time Temp Pulse Resp B/P Pulse Ox O2 Delivery O2 Flow Rate FiO2 08/07/17 08:06 98.7 62 19 107/65 96 08/06/17 03:39 Room Air Intake and Output 08/06/17 08/06/17 08/07/17 15:00 23:00 07:00 Intake Total 350 ml 2930 ml 2200 ml Output Total 4850 ml 3250 ml Balance 350 ml -1920 ml -1050 ml Results Result Diagram: 08/07/17 0504 08/07/17 0504 JAZZMINE DIAZ MD Aug 07, 2017 11:28
--- NOTE | 2017-08-07 13:23 | CONS ---
Date/Time of Note Date/Time of Note DATE: 08/07/17 TIME: 13:09 Assessment/Plan Assessment/Plan Chief Complaint/Hosp Course 77-year-old male with history of diabetes hypertension and dyslipidemia has also history of constipation presented to the hospital with abdominal pain CT scan showed mild bilateral hydronephrosis and urinary retention. The patient had a Guevara catheter put in. Prior to his admission he has lower urinary tract symptoms. His constipation has been treated and he is feeling better now. Rectal examination revealed soft prostate. The patient does not know the results of his PSA, I did order one to be done on the blood drawn on admission if possible and he will look for the results as he does have copies of his lab tests from before at home. I also will start him on tamsulosin to try to help with his voiding, check the postvoid residual after he voids and do straight cath for a postvoid residual of over 300 mL or if he is not able to urinate and the bladder volume is over 500 mL. Problems: Consultation Date/Type/Reason Admit Date/Time Aug 06, 2017 at 02:35 Date of Consultation: Aug 07, 2017 Type of Consultation: Urology Reason for Consultation Urinary retention Referring Provider: CINTHYA LOPEZ MD Hx of Present Illness This is a 77-year-old male with a history of hypertension, type 2 diabetes, dyslipidemia, chronic constipation, presented to the ER complaining of abdominal pain, abdominal distention, difficulty urination. In the emergency room he had a CT scan and that showed urinary retention and he had a Guevara catheter put in. Prior to his present illness he usually have nocturia 2 and during the day he does urinate every hour and half. He describes his stream as medium, he denies any dysuria, there is no history of gross hematuria and he feels he empties his bladder well. Constitutional: no complaints Eyes: no complaints ENT: no complaints Respiratory: no complaints Cardiovascular: no complaints Gastrointestinal: constipation, No pain (No pain now) Genitourinary: other (Has a Guevara catheter that is draining clear urine) Musculoskeletal: no complaints Skin: no complaints Neurologic: no complaints Lymphatic: no complaints Psychological: nl mood/affect Past Medical History Medical History: diabetes, high cholesterol, hypertension, other Past Surgical History Past Surgical Hx: appendectomy, other (Laser eye surgery) Family History Significant Family History: no pertinent family hx Social History Alcohol Use: none Smoking Status: Never smoker Exam/Review of Systems Vital Signs Vitals Vital Signs Date Time Temp Pulse Resp B/P Pulse Ox O2 Delivery O2 Flow Rate FiO2 08/07/17 08:06 98.7 62 19 107/65 96 08/06/17 03:39 Room Air Intake and Output 08/06/17 08/06/17 08/07/17 15:00 23:00 07:00 Intake Total 350 ml 2930 ml 2200 ml Output Total 4850 ml 3250 ml Balance 350 ml -1920 ml -1050 ml Exam Constitutional: alert, oriented Psych: nl mood/affect Head: normocephalic Eyes: nl conjunctiva ENMT: nl external ears & nose Neck: supple Respiratory: normal air movement Cardiovascular: nl pulses Gastrointestinal: non-tender, soft, surgical scars (Of appendectomy) Genitourinary - Male: nl penis, nl scrotum, other (Rectal exam soft and mildly enlarged prostate) Musculoskeletal: nl extremities to inspection Extremities: No calf tenderness Neurological: nl mental status Skin: nl turgor Results Result Diagram: 08/07/17 0504 08/07/17 0504 Results 24 hrs Laboratory Tests Test 08/06/17 18:03 08/06/17 21:04 08/07/17 05:03 08/07/17 05:04 Bedside Glucose 186 141 Prothrombin Time 13.7 Prothrombin Time Ratio 1.1 INR International Normalized Ratio 1.05 White Blood Count 7.9 # Red Blood Count 4.55 L Hemoglobin 13.7 L Hematocrit 39.8 L Mean Corpuscular Volume 87.5 Mean Corpuscular Hemoglobin 30.1 Mean Corpuscular Hemoglobin Concent 34.4 Red Cell Distribution Width 13.0 Platelet Count 184 Mean Platelet Volume 9.0 Neutrophils % 55.3 Lymphocytes % 33.1 Monocytes % 10.3 Eosinophils % 0.6 Basophils % 0.3 Nucleated Red Blood Cells % 0.0 Neutrophils # 4.4 Lymphocytes # 2.6 Monocytes # 0.8 Eosinophils # 0.1 Basophils # 0.0 Nucleated Red Blood Cells # 0.0 Sodium Level 140 Potassium Level 3.9 Chloride Level 105 # Carbon Dioxide Level 26 Anion Gap 13 Blood Urea Nitrogen 12 Creatinine 1.10 Glucose Level 193 Hemoglobin A1c 6.4 H Calcium Level 8.8 Phosphorus Level 3.2 Magnesium Level 2.1 Total Bilirubin 0.6 Direct Bilirubin 0.00 Indirect Bilirubin 0.6 Aspartate Amino Transf (AST/SGOT) 19 Alanine Aminotransferase (ALT/SGPT) 28 Alkaline Phosphatase 20 L Total Protein 6.3 Albumin 3.3 Globulin 3.00 Albumin/Globulin Ratio 1.10 Lipase 59 Thyroid Stimulating Hormone (TSH) 2.320 Test 08/07/17 06:44 08/07/17 08:31 Lactic Acid Level 1.6 Bedside Glucose 170 Imaging Free Text/Dictation CT scan of the abdomen and pelvis: Minimal linear atelectasis/fibrosis at lung bases. No pneumoperitoneum is seen. Very small umbilical hernia containing fat only. No abnormality seen in the liver. The gallbladder is contracted. This is nonspecific and could be due to nonfasting state. Food material/debris and air is seen in the stomach. No abnormality seen in the spleen. No biliary dilatation is seen. Atrophic changes are seen in the pancreas which can be seen in elderly patients. No abnormality of the adrenals is seen. Calcification in thoracoabdominal aorta. No abdominal aortic aneurysm is seen. There is nonspecific minimal hydronephrosis bilaterally. No renal or ureteral stone is seen. Mild nonspecific perinephric soft tissue stranding seen bilaterally. Guevara catheter in bladder. The prostate does not appear to be significantly enlarged. Small bilateral hydroceles are apparent. Moderate stool is seen in the rectum and in much of the colon. Surgical clips in right pelvis likely secondary to previous appendectomy. No dilated small bowel loops are seen. There is nonspecific "hazy" increased density in the central mesentery which could be secondary to mesenteric panniculitis. No enlarged lymph nodes are seen in the abdomen or pelvis. Trace ascites in left mid pelvis. Mild osteoarthrosis at hips. Degenerative changes at sacroiliac joints. Degenerative changes in thoracolumbar spine. Central spinal stenosis in lumbar spine. Medications Medications Current Medications Ondansetron HCl 4 mg 4 mg Q6H PRN IV NAUSEA AND/OR VOMITING; Start 08/06/17 at 04:30 Dextrose/Sodium Chloride (D5-1/2ns) 1,000 ml @ 100 mls/hr Q10H IV Last administered on 08/07/17t 05:46; Admin Dose 100 MLS/HR; Start 08/06/17 at 04: 30 Miscellaneous Information 1 ea NOTE XX ; Start 08/06/17 at 05:00 Glucose (Glutose) 15 gm Q15M PRN PO DECREASED GLUCOSE; Start 08/06/17 at 05:00 Glucose (Glutose) 22.5 gm Q15M PRN PO DECREASED GLUCOSE; Start 08/06/17 at 05: 00 Dextrose (D50w Syringe) 25 ml Q15M PRN IV DECREASED GLUCOSE; Start 08/06/17 at 05:00 Dextrose (D50w Syringe) 50 ml Q15M PRN IV DECREASED GLUCOSE; Start 08/06/17 at 05:00 Glucagon (Glucagen) 1 mg Q15M PRN IM DECREASED GLUCOSE; Start 08/06/17 at 05: 00 Glucose (Glutose) 15 gm Q15M PRN BUCCAL DECREASED GLUCOSE; Start 08/06/17 at 05:00 Famotidine (Pepcid Iv) 20 mg DAILY IV Last administered on 08/07/17 08:36; Admin Dose 20 MG; Start 08/07/17 at 09:00 Ketorolac Tromethamine (Toradol) 15 mg Q6H PRN IV PAIN; Start 08/06/17 at 17: 00; Stop 08/09/17 at 16:59 Diagnostic Test (Pha) (Accu-Chek) 1 ea 02 XX ; Start 08/07/17 at 02:00 Polyethylene Glycol (Miralax) 17 gm BID PO ; Start 08/08/17 at 09:00 Finasteride (Proscar) 5 mg QHS PO Last administered on 08/06/17 21:06; Admin Dose 5 MG; Start 08/06/17 at 21:00 Lisinopril (Zestril) 10 mg DAILY PO Last administered on 08/07/17 08:36; Admin Dose 10 MG; Start 08/07/17 at 09:00 Atorvastatin Calcium (Lipitor) 20 mg DAILY@21 PO Last administered on 21:05; Admin Dose 20 MG; Start 08/06/17 at 21:00 Aspirin (Halfprin) 81 mg DAILY PO ; Start 08/08/17 at 09:00 Tamsulosin HCl (Flomax) 0.4 mg HS PO ; Start 08/07/17 at 21:00; Status GIGI GONZALES MD Aug 07, 2017 13:22
[2017-08-07] MEDS ORDERED: INSULIN GLARGINE [LANtus] 3 ML PEN SC SCH ×2 (15:30→21:00)
[2017-08-07 16:30] VITALS: BP 100/65; RESP 20
[2017-08-07] MEDS ORDERED: SOD CHLORIDE 0.45% 1,000 ML IV SCH (17:00)
[2017-08-07 20:25] VITALS: BP 115/74; RESP 20
[2017-08-07] MEDS: ATORVASTATIN 20 MG TAB PO SCH (20:58)
[2017-08-07] MEDS: FINASTERIDE 5 MG TAB PO SCH (20:58)
[2017-08-07] MEDS ORDERED: TAMSULOSIN (SR) 0.4 MG CAP PO SCH (21:00)
[2017-08-08] MEDS: ACCU-CHEK XX SCH (02:00)
[2017-08-08 05:23] LABS: BASOPHILS % 0.1 % (0.0-2.0); EOSINOPHILS # 0.1 10^3/ul (0.0-0.5); EOSINOPHILS % 0.9 % (0.0-7.0); HEMATOCRIT 42.5 % (42.0-52.0); HEMOGLOBIN 14.6 g/dl (14.0-18.0); LYMPHOCYTES # 3.2 10^3/ul (0.8-2.9); LYMPHOCYTES % 35.5 % (15.0-51.0); MEAN CORPUSCULAR HEMOGLOBIN 30.2 pg (29.0-33.0); MEAN CORPUSCULAR HGB CONC 34.4 g/dl (32.0-37.0); MEAN CORPUSCULAR VOLUME 87.8 fl (82.0-101.0); MEAN PLATELET VOLUME 8.9 fl (7.4-10.4); MONOCYTE # 0.8 10^3/ul (0.3-0.9); MONOCYTES % 9.1 % (0.0-11.0); NEUTROPHIL # 4.8 10^3/ul (1.6-7.5); NEUTROPHILS % 54.1 % (39.0-77.0); PLATELET COUNT 202 10^3/UL (140-415); RED BLOOD COUNT 4.84 10^6/ul (4.70-6.10); RED CELL DISTRIBUTION WIDTH 12.5 % (11.5-14.5); WHITE BLOOD COUNT 8.9 10^3/ul (4.8-10.8)
[2017-08-08 05:56] LABS: CALCIUM 8.8 mg/dl (8.4-10.2); CREATININE 1.11 mg/dl (0.61-1.24); POTASSIUM 3.9 mmol/L (3.5-5.1)
[2017-08-08 08:21] VITALS: BP 118/76; RESP 18
[2017-08-08] MEDS ORDERED: POLYETHYLENE GLYCOL 17 GM PACKET PO SCH (09:00)
[2017-08-08] MEDS ORDERED: ASPIRIN (EC) 81 MG TAB PO SCH (09:00)
[2017-08-08] MEDS: FAMOTIDINE 20 MG INJ IV SCH (09:06)
[2017-08-08] MEDS: LISINOPRIL 10 MG TAB PO SCH (09:07)
[2017-08-08] MEDS: INSULIN ASPART [NOVOLOG] 3 ML PEN SC SCH (09:19)
--- NOTE | 2017-08-08 09:20 | PDOCDIS ---
Discharge Instructions CONDITION Patient Condition: Stable HOME CARE INSTRUCTIONS: Diet Instructions: Reduced Calorie ACTIVITY: Activity Restrictions: Slowly Increase Activity Rest between Activity Bathing Restrictions: Shower FOLLOW UP/APPOINTMENTS Follow-up Plan 1.Follow up with primary care physician in 1 week If you don't have one please let someone know, we can give you resources that may help you pick one. You may also call your insurance company to assign one to you. Review your medication list with your nurse before leaving and if you need new prescriptions please let your nurse know. I may have made changes to your home medications or given you new prescriptions, please let your primary doctor know as well. Stay compliant with your medications and report any side effects to your PCP or pharmacist. Return to the ER if you have any concerns and cannot reach your doctors or call your insurance company, they usually have a nurse that can help you. 2. Call 911 or go to the nearest emergency room if experiencing loss of consciousness, dizziness, chest pain, shortness of breath, vomiting/abdominal pain, speech difficulties, motor weakness or any unusual symptoms. MELANIE LEWIS NP Aug 08, 2017 09:20
[2017-08-08] MEDS ORDERED: POLY17PO6 PO ×2 (09:30→09:39)
[2017-08-08] MEDS ORDERED: TAMS-14 PO (09:30)
--- NOTE | 2017-08-08 09:33 | PN ---
Date/Time of Note Date/Time of Note DATE: 08/08/17 TIME: 09:32 Assessment/Plan VTE Prophylaxis VTE Prophylaxis Intervention: ambulation Lines/Catheters IV [facility]atheter Type (from [facility]): Peripheral IV Urinary Cath still in place: No Assessment/Plan Chief Complaint/Hosp Course 77-year-old diabetic male with history of Crohn's disease, prostatism, presented with urinary urgency, abdominal distention and pain. CT scan showed possible mesenteric panniculitis. 1. Mesenteric panniculitis. Symptoms resolved. -Surgery evaluation appreciated. No further recommendations indicated at this time. Patient is tolerating diet. 2. Urinary retention/bilateral mild hydronephrosis. -Urology evaluation appreciated. Patient is status post Guevara removal today. Plan is to have patient avoid and check postvoid residual. -On Flomax and Proscar. 3. Hyperglycemia with adult onset diabetes. A1c 6.4. -Continue insulin in-house with Lantus. 4. Constipation. Resolved. -Continue stool softeners and PRN laxatives. Recommend outpatient colonoscopy. 5. Hypertension. Stable. -Continue antihypertensives. 6. Hypercholesterolemia. -Continue statin. Prophylaxis: SCD/ambulation. Plan: Possible discharge planning today once patient is able to void without any difficulties. We will follow-up with the urology recommendations on discharge planning today. Patient is seen in collaboration with Dr. Mills. Problems: Subjective 24 Hr Interval Summary Free Text/Dictation Overall, patient doing well. He is currently not in any pain. Abdomen exam is benign. He is tolerating diet. Patient has been ambulating. Guevara catheter was removed this morning at 630. Patient is due void. Exam/Review of Systems Vital Signs Vitals Vital Signs Date Time Temp Pulse Resp B/P Pulse Ox O2 Delivery O2 Flow Rate FiO2 08/08/17 08:21 97.5 68 18 118/76 95 08/06/17 03:39 Room Air Intake and Output 08/07/17 08/07/17 08/08/17 14:59 22:59 06:59 Intake Total 1670 ml 1100 ml Output Total 2875 ml 1100 ml Balance -1205 ml 0 ml Exam General: Well developed,adequately built, not in any acute distress . HEENT: Normocephalic, Atraumatic, No laceration or hematoma; Eyes: PEERL, Conjunctiva clear, Anicteric sclera Neck: Supple without any lymphadenopathy, nontender, no JVD, no carotid bruits, trachea midline, no thyromegaly Cardiac: S1, S2 auscultated, regular rhythm and rate, no mumurs or gallop Pulmonary: Normal respiratory effort. Chest clear to auscultation bilaterally, no adventitious breath sounds GI: Abdomen normal to inspection. Soft, non tender, non- distended, no masses, no rebound tenderness or guarding. Bowel sounds active on all four quadrants Genitourinary: With Guevara draining clear yellow urine. Extremities: No cyanosis, clubbing, or edema. Pulses [2+] bilaterally. Full ROM on all four extremities. No focal weakness appreciated. Neurologic: Alert to person, place, time, and situation. Affect appropriate, intact sensation. Skin: Clean,dry, and intact. No ecchymosis, no rashes, or lesions Results Result Diagram: 08/08/17 0435 08/08/17 0435 Results 24 hrs Laboratory Tests Test 08/07/17 13:04 08/07/17 17:40 08/07/17 22:02 08/08/17 04:35 Bedside Glucose 163 133 150 White Blood Count 8.9 Red Blood Count 4.84 Hemoglobin 14.6 Hematocrit 42.5 Mean Corpuscular Volume 87.8 Mean Corpuscular Hemoglobin 30.2 Mean Corpuscular Hemoglobin Concent 34.4 Red Cell Distribution Width 12.5 Platelet Count 202 Mean Platelet Volume 8.9 Neutrophils % 54.1 Lymphocytes % 35.5 Monocytes % 9.1 Eosinophils % 0.9 Basophils % 0.1 Nucleated Red Blood Cells % 0.0 Neutrophils # 4.8 Lymphocytes # 3.2 H Monocytes # 0.8 Eosinophils # 0.1 Basophils # 0.0 Nucleated Red Blood Cells # 0.0 Sodium Level 138 Potassium Level 3.9 Chloride Level 103 Carbon Dioxide Level 25 Anion Gap 14 Blood Urea Nitrogen 15 Creatinine 1.11 Glucose Level 147 # Calcium Level 8.8 Test 08/08/17 08:37 Bedside Glucose 155 Medications Medications Current Medications Ondansetron HCl (Zofran Inj) 4 mg Q6H PRN IV NAUSEA AND/OR VOMITING; Start at 04:30 Miscellaneous Information 1 ea NOTE XX ; Start 08/06/17 at 05:00 Glucose (Glutose) 15 gm Q15M PRN PO DECREASED GLUCOSE; Start 08/06/17 at 05:00 Glucose (Glutose) 22.5 gm Q15M PRN PO DECREASED GLUCOSE; Start 08/06/17 at 05: 00 Dextrose (D50w Syringe) 25 ml Q15M PRN IV DECREASED GLUCOSE; Start 08/06/17 at 05:00 Dextrose (D50w Syringe) 50 ml Q15M PRN IV DECREASED GLUCOSE; Start 08/06/17 at 05:00 Glucagon (Glucagen) 1 mg Q15M PRN IM DECREASED GLUCOSE; Start 08/06/17 at 05: 00 Glucose (Glutose) 15 gm Q15M PRN BUCCAL DECREASED GLUCOSE; Start 08/06/17 at 05:00 Famotidine (Pepcid Iv) 20 mg DAILY IV Last administered on 08/08/17 09:06; Admin Dose 20 MG; Start 08/07/17 at 09:00 Ketorolac Tromethamine (Toradol) 15 mg Q6H PRN IV PAIN; Start 08/06/17 at 17: 00; Stop 08/09/17 at 16:59 Diagnostic Test (Pha) (Accu-Chek) 1 ea 02 XX ; Start 08/07/17 at 02:00 Polyethylene Glycol (Miralax) 17 gm BID PO Last administered on 08/08/17 09: 06; Admin Dose 17 GM; Start 08/08/17 at 09:00 Finasteride (Proscar) 5 mg QHS PO Last administered on 08/07/17 20:58; Admin Dose 5 MG; Start 08/06/17 at 21:00 Lisinopril (Zestril) 10 mg DAILY PO Last administered on 08/08/17 09:07; Admin Dose 10 MG; Start 08/07/17 at 09:00 Atorvastatin Calcium (Lipitor) 20 mg DAILY@21 PO Last administered on 20:58; Admin Dose 20 MG; Start 08/06/17 at 21:00 Aspirin (Halfprin) 81 mg DAILY PO Last administered on 08/08/17 09:06; Admin Dose 81 MG; Start 08/08/17 at 09:00 Tamsulosin HCl (Flomax) 0.4 mg HS PO Last administered on 08/07/17 20:58; Admin Dose 0.4 MG; Start 08/07/17 at 21:00 Insulin Glargine 12 unit 12 unit HS SC Last administered on 08/07/17 22:13; Admin Dose 12 UNIT; Start 08/07/17 at 21:00 Sodium Chloride (1/2 NS) 1,000 ml @ 50 mls/hr Q20H IV Last administered on 16:49; Admin Dose 50 MLS/HR; Start 08/07/17 at 17:00 MELANIE LEWIS NP Aug 08, 2017 09:33
--- NOTE | 2017-08-08 11:42 | DS ---
Date/Time of Note Date/Time of Note DATE: 08/08/17 TIME: 11:42 Discharge Summary Admission/Discharge Info Admit Date/Time Aug 06, 2017 at 02:35 Discharge Date/Time Discharge Diagnosis 1. Mesenteric panniculitis. Symptoms resolved. 2. Urinary retention/bilateral mild hydronephrosis. Resolved. 3. Adult onset diabetes. A1c 6.4. 4. Constipation. Resolved. 5. Hypertension. Stable. 6. Hypercholesterolemia. Patient Condition: Stable Consults ,surgery Procedures 08/06/2017: CT abdomen and pelvis. IMPRESSION: There is nonspecific "hazy" increased density in the central mesentery which could be secondary to mesenteric panniculitis. Trace ascites in left mid pelvis. Nonspecific minimal hydronephrosis bilaterally. Moderate stool in the rectum and much of colon. Hospital Course This is a 77-year-old male with a history of Crohn's disease, prostatism, type 2 diabetes, who was admitted for urinary urgency, abdominal distention and pain who also noted to have mesenteric pancolitis via CT scan. Patient had surgical consult. Recommendation was to continue medical management.He did have any signs of systemic infections and did not require any further antibiotics. Patient was also constipated and was treated with laxatives. Patient was then started on a diet which he was tolerating. In regards to urinary retention, CT also showed bilateral mild hydronephrosis. Patient had Guevara insertion and urinary symptoms resolved. He was also evaluated by urologist and was started on Flomax along with Proscar which he takes at home. Guevara catheter was then removed and patient was able to void without any residual. At this time, there is no further inpatient workup indicated. Patient is feeling back to his baseline. He was able to ambulate without any difficulties. There was no further abdominal distention or urinary symptoms. Patient is medically stable for discharge with outpatient follow-up. Disposition: Home. Patient verbalized discharge instructions. Approximately 60 minutes was spent in coordinating the discharge on this patient. Patient is seen in collaboration with . Home Meds Active Scripts Polyethylene Glycol* (Miralax*) 17 Gm Powd.pack, 17 GM PO DAILY for 7 Days, #1 BOTTLE MiraLAX generally produces a bowel movement in 1 to 3 days. Once you experience relief, you do not need to continue taking MiraLAX . You should use MiraLAX for no more than 7 days. If you need to use a laxative for longer than 1 week, stop use and consult your primary care doctor. Prov:MELANIE LEWIS [facility] 08/08/17 Tamsulosin Hcl* (Flomax*) 0.4 Mg Cap.er.24h, 0.4 MG PO HS, #30 CAP Prov:MELANIE LEWIS VBetzaida [facility] 08/08/17 Reported Medications Lisinopril* (Lisinopril*) 10 Mg Tablet, 10 MG PO DAILY, #30 TAB 08/06/17 Sitagliptin Phos/Metformin HCl (Janumet 50-1,000 mg Tablet) 1 Each Tablet, 1 EACH PO BID, TAB 08/06/17 Simvastatin (Simvastatin) 40 Mg Tablet, 40 MG PO QHS, #30 TAB 08/06/17 Finasteride* (Finasteride*) 5 Mg Tablet, 5 MG PO QHS, TAB 08/06/17 Discontinued Scripts Hydrocodone/Acetaminophen (Roxana 10-325 Tablet) 1 Each Tablet, 1 EACH PO Q6, # 20 TAB Prov:DAKOTAH LOPEZ DO 05/14/16 Follow-up Plan 1.Follow up with primary care physician in 1 week If you don't have one please let someone know, we can give you resources that may help you pick one. You may also call your insurance company to assign one to you. Review your medication list with your nurse before leaving and if you need new prescriptions please let your nurse know. I may have made changes to your home medications or given you new prescriptions, please let your primary doctor know as well. Stay compliant with your medications and report any side effects to your PCP or pharmacist. Return to the ER if you have any concerns and cannot reach your doctors or call your insurance company, they usually have a nurse that can help you. 2. Call 911 or go to the nearest emergency room if experiencing loss of consciousness, dizziness, chest pain, shortness of breath, vomiting/abdominal pain, speech difficulties, motor weakness or any unusual symptoms. Primary Care Provider Not On Staff Doctor Pending Labs Laboratory Tests Test 08/07/17 13:04 08/07/17 17:40 08/07/17 22:02 08/08/17 04:35 Bedside Glucose 163mg/dL (70-220) 133mg/dL (70-220) 150mg/dL (70-220) White Blood Count 8.910^3/ul (4.8-10.8) Red Blood Count 4.8410^6/ul (4.70-6.10) Hemoglobin 14.6g/dl (14.0-18.0) Hematocrit 42.5% (42.0-52.0) Mean Corpuscular Volume 87.8fl (82.0-101.0) Mean Corpuscular Hemoglobin 30.2pg (29.0-33.0) Mean Corpuscular Hemoglobin Concent 34.4g/dl (32.0-37.0) Red Cell Distribution Width 12.5% (11.5-14.5) Platelet Count 85105^3/UL (140-415) Mean Platelet Volume 8.9fl (7.4-10.4) Neutrophils % 54.1% (39.0-77.0) Lymphocytes % 35.5% (15.0-51.0) Monocytes % 9.1% (0.0-11.0) Eosinophils % 0.9% (0.0-7.0) Basophils % 0.1% (0.0-2.0) Nucleated Red Blood Cells % 0.0/100WBC (0.0-0.0) Neutrophils # 4.810^3/ul (1.6-7.5) Lymphocytes # 3.210^3/ul (0.8-2.9) Monocytes # 0.810^3/ul (0.3-0.9) Eosinophils # 0.110^3/ul (0.0-0.5) Basophils # 0.010^3/ul (0.0-0.1) Nucleated Red Blood Cells # 0.010^3/ul (0.0-0.0) Sodium Level 138mmol/L (135-144) Potassium Level 3.9mmol/L (3.5-5.1) Chloride Level 103mmol/L (97-110) Carbon Dioxide Level 25mmol/L (21-31) Anion Gap 14 (8-16) Blood Urea Nitrogen 15mg/dl (7-20) Creatinine 1.11mg/dl (0.61-1.24) Glucose Level 147mg/dl (70-220) Calcium Level 8.8mg/dl (8.4-10.2) Test 08/08/17 08:37 Bedside Glucose 155mg/dL (70-220) MELANIE LEWIS NP Aug 08, 2017 11:42
--- NOTE | 2017-08-08 14:16 | RADRPT ---
Vent Rate: 65 bpm RR Interval: 0 msec [place] Interval: 178 msec QRS Duration: 74 msec QT Interval: 356 msec QTC Interval: 370 msec P-R-T [place]: 44 - 65 - 67 degrees Normal sinus rhythm Normal ECG Electronically Signed By: Ashu Beal [id number]
== END 2017-08-08 12:20 | disposition home or self-care (01) | DRG 394 ==
LOC: E/R 23:45 → MS1 08-06 02:35
PROVIDERS: ADMIT Internal Medicine; ATTEND Internal Medicine
PROC: 0T9B70Z Drainage of Bladder with Drainage Device, Via Natural or Artificial Opening (ICD-10-PCS; principal; 2017-08-06)
DX: K65.4 Sclerosing mesenteritis (principal); R18.8 Other ascites; E11.65 Type 2 diabetes mellitus with hyperglycemia; E88.81 Metabolic syndrome and other insulin resistance; K50.90 Crohn's disease, unspecified, without complications; N13.30 Unspecified hydronephrosis; E78.5 Hyperlipidemia, unspecified; K59.09 Other constipation; N40.1 Benign prostatic hyperplasia with lower urinary tract symptoms; R33.8 Other retention of urine; R39.15 Urgency of urination; I10 Essential (primary) hypertension; Z79.82 Long term (current) use of aspirin; Z79.4 Long term (current) use of insulin
CPT/HCPCS: 36415; 71010; 74176; 74181; 80048; 80053; 81003; 82306; 82565; 82962; 83036; 83605; 83690; 83735; 84100; 84153; 84154; 84443; 84520; 85025; 85610; 93005; 96374; 96375; J1170; J1650; J1815; J1885; J2543; J3370; J7042; J7050; J7120

== ENCOUNTER → 2017-11-29 | Outpatient (CLI) | END | disposition home or self-care (01) ==

== ENCOUNTER 2018-03-13 11:16 | Emergency (ER) | END 2018-03-13 13:00 | disposition home or self-care (01) ==

== ENCOUNTER → 2018-06-05 | Outpatient (CLI) | END | disposition home or self-care (01) ==

== ENCOUNTER → 2019-01-05 | Outpatient (CLI) | payer BC ==
[~2019-01-05] MED LIST changes: +FINA5TAB4 PO; -HYDR-902 PO; +IBUP-1542 PO; +LISI10TA2 PO; +POLY17PO6 PO; +SIMV40TA3 PO; +SITA1TAB5 PO; +TAMS-14 PO
== END | disposition home or self-care (01) ==
LOC: LAB 13:06
PROVIDERS: ATTEND Family Medicine Adult Medicine
DX: K76.0 Fatty (change of) liver, not elsewhere classified (principal); E11.22 Type 2 diabetes mellitus with diabetic chronic kidney disease
CPT/HCPCS: 80053; 80061; 81003; 82043; 83036; 84153; 84154; 84155; 84443; 85025; 87086